=== PATIENT | female | born 1955 | race Caucasian/White ===

== ENCOUNTER 2022-06-22 20:15 | Emergency (ER) | payer MEDICARE, OTHER, SELFPAY ==
[2022-06-22 20:18] VITALS: BP 212/86; PULSE 72; RESP 15; TEMP 36.8; O2SAT 93; BMI 26.4
--- NOTE | 2022-06-22 20:30 | XR_ITS ---
PROCEDURE INFORMATION: Exam: XR Right Tibia and Fibula Exam date and time: 06/22/2022 8:50 PM Age: 67 years old Clinical indication: Pain; Lower leg; Right; Additional info: Injury TECHNIQUE: Imaging protocol: Radiologic exam of the right tibia and fibula. Views: 2 views. COMPARISON: No relevant prior studies available. FINDINGS: Bones/joints: Normal. Soft tissues: Normal. IMPRESSION: No acute findings.
--- NOTE | 2022-06-22 20:30 | XR_ITS ---
PROCEDURE INFORMATION: Exam: XR Right Foot Exam date and time: 06/22/2022 8:53 PM Age: 67 years old Clinical indication: Pain; Foot; Right; Additional info: Injury TECHNIQUE: Imaging protocol: Radiologic exam of the right foot. Views: 3 or more views. COMPARISON: CR XR ANKLE RT MIN 3V 06/22/2022 8:51 PM FINDINGS: Bones/joints: Osseous alignment is normal. No acute fracture or arthritic change. Mild plantar spurring of the calcaneus noted. Soft tissues: Normal. IMPRESSION: No acute fracture
--- NOTE | 2022-06-22 20:30 | XR_ITS ---
PROCEDURE INFORMATION: Exam: XR Right Ankle Exam date and time: 06/22/2022 8:51 PM Age: 67 years old Clinical indication: Pain; Ankle; Right; Additional info: Injury TECHNIQUE: Imaging protocol: Radiologic exam of the right ankle. Views: 3 or more views. COMPARISON: CR XR TIBIA FIBULA RT 2V 06/22/2022 8:50 PM FINDINGS: Bones/joints: Normal. Soft tissues: There is significant diffuse soft tissue swelling of the ankle. IMPRESSION: No acute fracture or dislocation
--- NOTE | 2022-06-22 20:52 | PC.NURSE ---
Rounded on patient. patient in room, no needs voiced at this time.
[2022-06-22 21:01] VITALS: BP 146/74; PULSE 60; RESP 18; O2SAT 99
[2022-06-22 21:31] VITALS: BP 157/75; PULSE 58; RESP 20; O2SAT 98
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
--- NOTE | 2022-06-22 21:47 | PC.NURSE ---
on room talking to patient at this time.
--- NOTE | 2022-06-22 21:54 | XR_ITS ---
PROCEDURE INFORMATION: Exam: XR Right Ankle Exam date and time: 06/22/2022 10:01 PM Age: 67 years old Clinical indication: Injury or trauma; Fall; Blunt trauma; Ankle; Right; Additional info: Fall, pain TECHNIQUE: Imaging protocol: Radiologic exam of the right ankle. Views: 3 or more views. COMPARISON: CR XR ANKLE RT MIN 3V 06/22/2022 8:51 PM FINDINGS: Bones/joints: There is an irregular appearance of the medial malleolus which has a chronic appearance. No acute fracture evident. Osseous alignment appears normal. Moderate plantar calcaneal spurring noted. Soft tissues: Normal. IMPRESSION: No acute fracture. Chronic appearing irregularity of the medial malleolus may represent an old fracture or partially ununited ossification center.
--- NOTE | 2022-06-22 21:54 | XR_ITS ---
PROCEDURE INFORMATION: Exam: XR Right Foot Exam date and time: 06/22/2022 10:03 PM Age: 67 years old Clinical indication: Injury or trauma; Fall; Blunt trauma; Foot; Right; Additional info: Fall, pain TECHNIQUE: Imaging protocol: Radiologic exam of the right foot. Views: 3 or more views. COMPARISON: CR XR FOOT RT MIN 3V 06/22/2022 8:53 PM FINDINGS: Bones/joints: Osseous alignment is normal. No acute fracture or arthritic change. Mild plantar calcaneal spurring noted. Soft tissues: Normal. IMPRESSION: No acute abnormality
--- NOTE | 2022-06-22 21:54 | XR_ITS ---
PROCEDURE INFORMATION: Exam: XR Right Tibia and Fibula Exam date and time: 06/22/2022 10:00 PM Age: 67 years old Clinical indication: Injury or trauma; Fall; Blunt trauma; Lower leg; Right; Additional info: Fall, pain TECHNIQUE: Imaging protocol: Radiologic exam of the right tibia and fibula. Views: 2 views. COMPARISON: CR XR TIBIA FIBULA RT 2V 06/22/2022 8:50 PM FINDINGS: Bones/joints: Osseous alignment is normal. No acute fracture or arthritic change evident. Moderate plantar calcaneal spurring noted. Soft tissues: Normal. IMPRESSION: No acute abnormality
--- NOTE | 2022-06-22 21:55 | PC.NURSE ---
Pt reporting that she has not any imaging completed. I called radiology and they have addressed the issue with CHRISTIANAD and will be taking her shortly
[2022-06-22 22:01] VITALS: BP 174/74; PULSE 60; O2SAT 97
--- NOTE | 2022-06-22 22:19 | PC.NURSE ---
pt back from Xray via wheelchair
[2022-06-22 22:31] VITALS: BP 168/75; PULSE 64; RESP 18; O2SAT 97
[2022-06-22 23:20] VITALS: BP 164/79; PULSE 88; RESP 14; TEMP 36.7; O2SAT 98
== END 2022-06-22 23:35 | disposition home or self-care (01) ==
PROVIDERS: Emergency Provider Emergency Medicine; PCP Pediatrics
DX: M25.571 Pain in right ankle and joints of right foot (principal); R22.41 Localized swelling, mass and lump, right lower limb; F17.210 Nicotine dependence, cigarettes, uncomplicated
CPT/HCPCS: 73590; 73610; 73630; 99284

== ENCOUNTER → 2023-02-15 12:00 | Outpatient (CLI) | payer MEDICARE, OTHER, SELFPAY ==
[2023-02-15 17:55] LABS: Coronavirus 19, PCR Not Detected (NotDetected); Influenza A, PCR Not Detected (NotDetected); Influenza B, PCR Not Detected (NotDetected)
== END ==
PROVIDERS: PCP Nurse Practitioner; Visit Provider Nurse Practitioner
DX: J06.9 Acute upper respiratory infection, unspecified (principal)
CPT/HCPCS: 87636

== ENCOUNTER → 2023-02-16 17:06 | Outpatient (CLI) | payer MEDICARE, OTHER, SELFPAY ==
--- NOTE | 2023-02-16 17:35 | XR_ITS ---
PROCEDURE INFORMATION: Exam: XR Chest Exam date and time: 02/16/2023 5:26 PM Age: 67 years old Clinical indication: Cough; Additional info: Cough, lll pneumonia TECHNIQUE: Imaging protocol: Radiologic exam of the chest. Views: 2 views. COMPARISON: No relevant prior studies available. FINDINGS: Lungs: Unremarkable. No consolidation. Pleural spaces: Unremarkable. No pleural effusion. No pneumothorax. Heart/Mediastinum: Unremarkable. No cardiomegaly. Bones/joints: Orthopedic hardware noted in the cervical spine. Slight thoracic scoliosis and multilevel degenerative disc changes. No acute fracture. IMPRESSION: No acute disease
== END ==
PROVIDERS: PCP Nurse Practitioner; Visit Provider Nurse Practitioner
DX: J18.9 Pneumonia, unspecified organism (principal); R05.9 Cough, unspecified
CPT/HCPCS: 71046

== ENCOUNTER 2023-04-20 22:00 | Outpatient (CLI) | payer MEDICARE, OTHER, SELFPAY ==
[2023-04-20 19:22] LABS: Basophils % 0.9 % (0.1-2.0); Eosinophils # 0.2 K/mm3 (0.0-0.4); Eosinophils % 3.3 % (0.1-12.0); Hematocrit 43.6 % (37.0-47.0); Hemoglobin 14.5 g/dL (12.2-16.2); Lymphocytes # 1.6 K/mm3 (0.7-4.5); Lymphocytes % 36.3 % (10-50); Mean Corpuscular HGB Conc 33.2 g/dL (31.8-35.4); Mean Corpuscular Hemoglobin 31.3 pg (27.0-31.2); Mean Corpuscular Volume 94.4 fl (81-99); Monocytes # 0.3 K/mm3 (0.1-1.0); Monocytes % 6.1 % (1.7-9.3); Neutrophils # 2.4 K/mm3 (1.8-7.8); Neutrophils % 53.3 % (37.0-80.0); Platelet Count 158 K/mm3 (142-424); Red Blood Count 4.62 M/mm3 (4.20-5.40); Red Cell Distribution Width 13.6 % (11.5-17.5); White Blood Count 4.5 K/mm3 (4.8-10.8)
[2023-04-20 19:39] LABS: Hemoglobin A1C 5.5 % (4.0-6.0)
[2023-04-20 19:55] LABS: Alanine Aminotransferase 13 U/L (12-78); Albumin Level 3.9 g/dl (3.5-5.0); Albumin/Globulin Ratio 1.8 (1.1-1.8); Alkaline Phosphatase 70 U/L (38-126); Anion Gap 9.1 mEq/L (5-15); Aspartate Amino Transferase 18 U/L (14-36); Bilirubin,Total 0.3 mg/dl (0.2-1.3); Blood Urea Nitrogen 17 mg/dl (7-17); Calcium 9.6 mg/dl (8.4-10.2); Carbon Dioxide 30 mmol/L (22.0-30.0); Chloride 107 mmol/L (98-107); Chol/HDL Ratio 3.4 (1-3.5); Cholesterol 123 mg/dl (140-200); Estimated Glomerular Filt Rate 55 ml/min (>60); GFR (African American) 67 ML/MIN (>60); Globulin 2.2 g/dL (1.3-3.2); Glucose 96 mg/dl (74-100); HDL Cholesterol 36 mg/dl (40-60); Potassium 4.1 mmoL/L (3.5-5.1); Sodium 142 mmol/L (136-145); Total Protein,Serum 6.1 g/dl (6.3-8.2); Triglycerides 104 mg/dl (30-150); VLDL Cholesterol 21 mg/dL (0-40)
[2023-04-20 20:07] LABS: Direct LDL Cholesterol 66.45 mg/dL (100-129)
[2023-04-20 20:26] LABS: Thyroid Stimulating Hormone 0.52 uIU/mL (0.465-4.68)
[2023-04-20 20:45] LABS: Vitamin B12 289 pg/mL (239-931)
== END 2023-04-20 23:59 ==
LOC: LAB.DROPOF 22:01
PROVIDERS: PCP Nurse Practitioner; Visit Provider Nurse Practitioner
DX: E78.5 Hyperlipidemia, unspecified (principal); I10 Essential (primary) hypertension; I25.10 Atherosclerotic heart disease of native coronary artery without angina pectoris; J44.9 Chronic obstructive pulmonary disease, unspecified; K21.9 Gastro-esophageal reflux disease without esophagitis; R73.01 Impaired fasting glucose
CPT/HCPCS: 80053; 80061; 82607; 83036; 84443; 85025